=== PATIENT | female | born 2000 | race Caucasian/White ===

== ENCOUNTER 2023-11-19 16:55 | Emergency (ER) | payer BC ==
[2023-11-19] MEDS ORDERED: Metoclopramide HCl 10 MG (2 mL) VIAL ONE (17:10)
[2023-11-19] MEDS ORDERED: Sodium Chloride 0.9% 1,000 ML ONE (17:10)
[2023-11-19] MEDS ORDERED: diphenhydrAMINE 50 MG/ML VIAL ONE (17:10)
[2023-11-19] MEDS ORDERED: Ketorolac Tromethamine 30 MG (1 mL) VIAL ONE (18:18)
== END 2023-11-19 19:25 | disposition home or self-care (01) ==
LOC: NAV ERS 16:55
DX: G43.909 Migraine, unspecified, not intractable, without status migrainosus (principal); R11.2 Nausea with vomiting, unspecified
CPT/HCPCS: 96365; 96375; J1200; J1885; J2765; J7050